=== PATIENT | female | born 1970 | race Caucasian/White ===

== ENCOUNTER → 2016-04-15 | Outpatient (CLI) | payer OTHER ==
--- NOTE | 2016-04-15 08:41 | US ---
Ultrasound of the Abdomen Limited History: Elevated liver function tests. R 94.5 Findings: Gallbladder: No shadowing calculi, wall thickening, or pericholecystic fluid. Common bile duct is 3 m m in diameter which is normal. Liver: Homogeneous in echogenicity without definite focal lesions and measures 16 cm in length. Renal: Right kidney measures 11 x 5 x 5 cm without hydronephrosis. Pancreas: Homogeneous without peripancreatic fluid. Aorta: Visualized upper abdominal aorta demonstrates no aneurysm. Impression: 1. No cholelithiasis or biliary ductal dilation. 2. No hepatic masses, hepatomegaly, or ascites.
== END ==
LOC: CIMAGING 07:54
PROVIDERS: ATTEND Internal Medicine
DX: R94.5 Abnormal results of liver function studies (principal)
CPT/HCPCS: 76705-PO

== ENCOUNTER 2016-06-08 16:52 | Emergency (ER) | payer OTHER ==
[2016-06-08 16:57] VITALS: RESP 16; O2SAT 99
--- NOTE | 2016-06-08 17:06 | EDPHY ---
H & P Time Seen by Provider: 06/08/16 17:00 HPI/ROS: CHIEF COMPLAINT: Right upper arm swelling at PICC line insertion site HISTORY OF PRESENT ILLNESS: This patient is a 46 year old female referred to the Emergency Department by her PCP for acute swelling at the insertion site of the PICC line inserted in her right upper arm beginning yesterday. Her infusion nurse visited her today and reported concern about swelling and tightness to the upper extremity. She also reports intermittent white discharge from the site yesterday. She denies tenderness or pain to her upper arm. She has been receiving IV antibiotics for an unspecified "blood infection" since mid-March ; she takes 375mg Azithromycin every other day, 350mg Clindamycin once daily, and PO Bactrim twice daily. PICC line was placed at the beginning of March and has not been replaced since that time. REVIEW OF SYSTEMS: Constitutional: No fever, no chills Eyes: No visual changes ENT: No sore throat Respiratory: No cough, no shortness of breath Cardiac: No chest pain Gastrointestinal: No nausea, no vomiting, no abdominal pain Genitourinary: No hematuria, no dysuria Musculoskeletal: +right upper arm swelling, no leg pain or swelling Skin: +discharge from PICC line insertion site, no rash Neurological: No headache, no numbness, no weakness Psychiatric: No depression Past Medical/Surgical History: Unspecified infections treated by PICC line at present. Social History: Never smoked. . Smoking Status: Never smoked Physical Exam: General Appearance: Alert, no distress Eyes: Pupils equal and round, no conjunctival pallor or injection ENT, Mouth: Mucous membranes moist Neck: Normal inspection Respiratory: Lungs are clear to auscultation Cardiovascular: Regular rate and rhythm Gastrointestinal: Abdomen is soft and non- tender Neurological: A&O, nonfocal, normal gait Skin: Warm and dry, no rash. PICC site is clean, dry, and in tact; no tenderness, erythema, or drainage Extremities: Mild swelling of right upper extremity without erythema or tenderness, no pedal edema Psychiatric: Mood and affect normal Constitutional: Initial Vital Signs Temperature (C) 36.4 C 06/08/16 16:53 Heart Rate 77 06/08/16 16:53 Respiratory Rate 16 06/08/16 16:53 Blood Pressure 102/63 06/08/16 16:53 O2 Sat (%) 99 06/08/16 16:53 O2 Delivery Mode Room Air Allergies/Adverse Reactions: cephalexin monohydrate [From Keflex] Allergy (Intermediate, Verified 06/08/16 16 :57) Hives Home Medications: Medication Instructions Recorded Clindamycin Phosphate [Clindamycin mg IV 06/08/16 Inj] Rivaroxaban [Xarelto 15mg (*)] 15 mg PO BID #41 tab 06/08/16 Zithromycin IV 06/08/16 Medical Decision Making - Diagnostics Imaging: Study: Ultrasound of the right upper extremity Indication: Tightness, rule out blood clot Results: Ultrasound of the right upper extremity was obtained. The results of the study are: Right upper extremity venous thrombus involving a brachial vein where the PICC is positioned. There is also nonocclusive thrombus in the right axillary, and there is a short segment of occlusive thrombus in the right proximal subclavian. The study was read by the radiologist, Dr. Rojas Robert. I viewed the images myself on the PACS system. ED Course/Re-evaluation: Will proceed with US of the right upper extremity for suspicion of possible DVT. 1813: Imaging results reported to me by Dr. Rojas Robert, radiology. I attempted to consult with the patient's primary care provider, Dr. Bernardo, but was unable to reach him after multiple attempts. Will start the patient on Xarelto to treat her DVT. Xarelto orally given. I also wrote a prescription for Xarelto. 1906: Consulted with Dr. Robert, radiology, to understand how to proceed with insertion of a new PICC line as an outpatient. He advised that I put an order in now for the outpatient procedure. I will inform the patient that she should present to radiology tomorrow for the procedure. The RUE PICC line will be removed during the IR visit tomorrow. I discussed the treatment plan with the patient who understands follow-up steps including visit to radiology and follow-up with her PCP this week. She is agreeable to this. She tells me that she is out of her IV antibiotics at home and requests administration of her antibiotics before discharge. Zithromax 375 mg IV given. She will follow up with Dr. Bernardo for home abx prescriptions. - Data Points Medications Given: Discontinued Medications Azithromycin 375 mg/ Dextrose 253.75 mls @ 255 mls/hr IV EDNOW ONE PRN Reason: Protocol Stop: 06/08/16 20:24 Last Admin: 06/08/16 20:17 Dose: 253.75 mls Rivaroxaban (Xarelto) 15 mg PO EDNOW ONE Stop: 06/08/16 20:31 Last Admin: 06/08/16 20:44 Dose: 15 mg Departure - Departure Disposition: Home, Routine, Self-Care Clinical Impression: Deep venous thrombosis of upper extremity Qualifiers: Affected thrombotic vein of extremity: brachial Laterality: right Chronicity: acute Qualified Code(s): I82.621 - Acute embolism and thrombosis of deep veins of right upper extremity Condition: Good Instructions: Deep Venous Thrombosis (ED) Additional Instructions: 1. Go to the radiology department tomorrow for insertion of a new PICC line. You should present to admissions at noon; your PICC line will be replaced at 12: 30. 2. Follow-up with Dr. Bernardo this week to discuss long-term treatment and prevention of your DVT. 3. Return to the Emergency Department if you experience worsening pain or swelling to your right upper arm, difficulty breathing, chest pain, leg swelling , or other serious concerns. Referrals: Kizzy Bernardo MD [Primary Care Provider] - As per Instructions Prescriptions: Rivaroxaban [Xarelto 15mg (*)] 15 mg PO BID #41 tab Report Scribed for: Ivana Rae Report Scribed by: Charlee Ocampo Date of Report: 06/08/16 Time of Report: 17:05 Physician Review and Approval Statement: 06/08/16 17:05 Portions of this note were transcribed by a bilingual medical receptionist. I personally performed a history, physical exam, medical decision making, and confirmed accuracy of information the transcribed note.
[2016-06-08] MEDS ORDERED: ALTEPLASE 2 MG VIAL IVP PRN (19:04)
[2016-06-08] MEDS ORDERED: AZITHROMYCIN IV ONE (19:25)
[2016-06-08] MEDS ORDERED: D5W IV ONE (19:25)
[2016-06-08] MEDS ORDERED: RIVAROXABAN 15 MG TAB PO ONE (20:30)
[2016-06-08 21:25] VITALS: BP 89/53; PULSE 88; TEMP 97.7
== END 2016-06-08 21:26 | disposition home or self-care (01) ==
DX: I82.621 Acute embolism and thrombosis of deep veins of right upper extremity (principal)
CPT/HCPCS: 96374; J0456

== ENCOUNTER → 2016-06-09 | Day surgery (SDC) | payer OTHER | END | disposition home or self-care (01) | LOC: FIMAGING 12:20 | PROVIDERS: ATTEND Radiology Diagnostic Radiology | PROC: 02HV33Z Insertion of Infusion Device into Superior Vena Cava, Percutaneous Approach (ICD-10-PCS; principal; 2016-06-09) | DX: Z79.2 Long term (current) use of antibiotics (principal); I82.90 Acute embolism and thrombosis of unspecified vein | CPT/HCPCS: 36569; 77001; C1751 ==

== ENCOUNTER → 2016-07-07 | Outpatient (CLI) | payer OTHER | LOC: FIMAGING 17:11 | PROVIDERS: ATTEND Internal Medicine | DX: Z86.718 Personal history of other venous thrombosis and embolism (principal) ==

== ENCOUNTER → 2016-08-03 | Outpatient (CLI) | payer OTHER | LOC: FIMAGING 16:49 | PROVIDERS: ATTEND Internal Medicine | DX: R79.89 Other specified abnormal findings of blood chemistry (principal); M79.602 Pain in left arm ==